=== PATIENT | female | born 1970 | race Caucasian/White ===

== ENCOUNTER 2016-06-05 17:33 | Emergency (ER) | payer BC ==
[2016-06-05 18:07] LABS: URINE APPEARANCE CLEAR; URINE BILIRUBIN NEGATIVE (NEGATIVE); URINE BLOOD NEGATIVE (NEGATIVE); URINE COLOR YELLOW; URINE GLUCOSE (UA) NEGATIVE (NEGATIVE); URINE KETONE NEGATIVE (NEGATIVE); URINE LEUKOCYTE ESTERASE TRACE (NEGATIVE); URINE NITRITE NEGATIVE (NEGATIVE); URINE PROTEIN NEGATIVE (NEGATIVE); URINE UROBILINOGEN 0.2 E.U./dL (0.20 - 1.00)
--- NOTE | 2016-06-05 18:10 | Emergency Department Record ---
History of Present Illness - General Chief complaint: Flank Pain Stated complaint: FLANK PAIN/RT SIDE Time Seen by Provider: 06/05/16 18:00 Source: Patient Mode of Arrival: Ambulatory - History of Present Illness Initial comments: patient is complaining of right flank pain and stopped bactrim 2 days ago and urologist stopped it because on antibiotics to long pe Dr. Reddy and CT scan for jun 13 and than a cysto is going to be scheduled. Primary is Dr. Knox and he is on vacation and he put her on bactrim for a month. 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 patient 's back pain is reproducible with palpation and rotation of her back. Onset/Timin -: Month(s) Radiation: Non-radiating Severity: Severe Severity scale (1-10): 6 Quality: Aching Consistency: Constant Improves with: None Worsens with: None Patient : No Associated Symptoms: Loss of appetite - Related Data Home Medications Medication Instructions Recorded Confirmed Last Taken Atenolol [Atenolol] 100 mg PO DAILY 12/13/13 06/05/16 06/05/16 Hydrochlorothiazide 50 mg PO DAILY 12/13/13 06/05/16 06/05/16 [Hydrochlorothiazide] Ibuprofen [Motrin] 400 mg PO DAILY 12/13/13 06/05/16 06/05/16 Levothyroxine Sodium [Synthroid] 25 mcg PO DAILYTHY 12/13/13 06/05/16 06/05/16 Allergies Allergy/AdvReac Type Severity Reaction Status Date / Time diazepam [DIAZEPAM] Allergy Unknown ALTERED Verified 06/05/16 18:00 MENTAL STATUS hydrocodone [HYDROCODONE] Allergy Unknown VOMITING Verified 06/05/16 18:00 meperidine [MEPERIDINE] Allergy Unknown HIVES Verified 06/05/16 18:00 morphine [MORPHINE] Allergy Unknown ANAPHYLAXIS Verified 06/05/16 18:00 Penicillins [PENICILLINS] Allergy Unknown HIVES Verified 06/05/16 18:00 hydromorphone HCl Allergy DIFFICULTY Verified 06/05/16 18:00 [From Dilaudid] BREATHING Travel Screening - Travel/Exposure Within Last 30 Days Have you traveled within the last 30 days?: No Review of Systems Reviewed: No additional complaints except as noted below Constitutional: Reports: As per HPI. Denies: Chills, Fever, Malaise, Night sweats, Weakness, Weight change Eyes: Reports: As per HPI. Denies: Eye discharge, Eye pain, Photophobia, Vision change ENT: Reports: As per HPI. Denies: Congestion, Dental pain, Ear pain, Epistaxis , Hearing loss, Throat pain Respiratory: Reports: As per HPI. Denies: Cough, Dyspnea, Hemoptysis, Stridor, Wheezes Cardiovascular: Reports: As per HPI. Denies: Arrhythmia, Chest pain, Dyspnea on exertion, Edema, Murmurs, Orthopnea, Palpitations, Paroxysmal nocturnal dyspnea, Rheumatic Fever, Syncope Endocrine: Reports: As per HPI. Denies: Fatigue, Heat or cold intolerance, Polydipsia, Polyuria Gastrointestinal: Reports: As per HPI. Denies: Abdominal pain, Constipation, Diarrhea, Hematemesis, Hematochezia, Melena, Nausea, Vomiting Genitourinary: Reports: As per HPI. Denies: Abnormal menses, Discharge, Dyspareunia, Dysuria, Frequency, Hematuria, Incontinence, Retention, Urgency Musculoskeletal: Reports: As per HPI. Denies: Arthralgia, Back pain, Gout, Joint swelling, Myalgia, Neck pain Skin: Reports: As per HPI. Denies: Bruising, Change in color, Change in hair/ nails, Lesions, Pruritus, Rash Neurological: Reports: As per HPI. Denies: Abnormal gait, Confusion, Headache, Numbness, Paresthesias, Seizure, Tingling, Tremors, Vertigo, Weakness Psychiatric: Reports: As per HPI. Denies: Anxiety, Auditory hallucinations, Depression, Homicidal thoughts, Suicidal thoughts, Visual hallucinations Hematological/Lymphatic: Reports: As per HPI. Denies: Anemia, Blood Clots, Easy bleeding, Easy bruising, Swollen glands Past Medical History - SOCIAL HISTORY Smoking Status: Never smoker Alcohol Use: None Drug Use: None - RESPIRATORY Hx Respiratory Disorders: No - CARDIOVASCULAR Hx Cardio Disorders: Yes Comment:: Mitral valve prolapse - NEURO Hx Neuro Disorders: No - GI Hx GI Disorders: No - Hx Genitourinary Disorders: No - ENDOCRINE Hx Endocrine Disorders: Yes Hx Thyroid Disease: Yes - MUSCULOSKELETAL Hx Musculoskeletal Disorders: Yes Hx Arthritis: Yes Hx Back Injury: Yes - PSYCH Hx Psych Problems: No - HEMATOLOGY/ONCOLOGY Hx Hematology/Oncology Disorders: No Family Medical History Any Significant Family History?: Yes Hx Heart Disease: Brother/Sister Hx HTN: Father, Mother *Stroke Comment: Multiple family members have of anurysms. Physical Exam - General General Appearance: Alert, Oriented x3, Cooperative, No acute distress - Head Head exam: Normal inspection - Eye Eye exam: Normal appearance, PERRL Pupils: Normal accommodation - ENT ENT exam: Normal exam, Mucous membranes moist, Normal external ear exam, Normal orophraynx, TM's normal bilaterally Ear exam: Normal external inspection. negative: External canal tenderness Nasal Exam: Normal inspection. negative: Discharge, Sinus tenderness Mouth exam: Normal external inspection, Tongue normal Teeth exam: Normal inspection. negative: Dental caries Throat exam: Normal inspection. negative: Tonsillar erythema, Tonsillar exudate - Neck Neck exam: Normal inspection, Full ROM. negative: Tenderness - Respiratory Respiratory exam: Normal lung sounds bilaterally. negative: Respiratory distress - Cardiovascular Cardiovascular Exam: Regular rate, Normal rhythm, Normal heart sounds - GI/Abdominal GI/Abdominal exam: Soft, Normal bowel sounds. negative: Tenderness - Rectal Rectal exam: Deferred - exam: Deferred - Extremities Extremities exam: Normal inspection, Full ROM, Normal capillary refill. negative: Tenderness - Back Back exam: Reports: Normal inspection, Full ROM. Denies: Muscle spasm, Rash noted, Tenderness - Neurological Neurological exam: Alert, Normal gait, Oriented X3, Reflexes normal - Psychiatric Psychiatric exam: Normal affect, Normal mood - Skin Skin exam: Dry, Intact, Normal color, Warm Course Vital Signs 06/05/16 17:52 Temperature 98.0 F Pulse Rate 77 Respiratory 18 Rate Blood Pressure 137/64 Pulse Ox 96 patient was also on pyridium. - Reevaluation(s) Reevaluation #1: discussed UA results and not clean catch and talked about using motrin for her back pain and she is insistint on going on an antibiotic and she said she has 11 days of bactrim left so we decided to restart the bactrim DS BID and see Dr. Knxo on friday and return if worse. 06/05/16 18:51 Disposition Clinical Impression: History of UTI Back pain Qualifiers: Back pain location: low back pain Chronicity: acute Back pain laterality: right Sciatica presence: without sciatica Qualified Code(s): M54.5 - Low back pain UTI (urinary tract infection) Qualifiers: Urinary tract infection type: acute cystitis Hematuria presence: with hematuria Qualified Code(s): N30.01 - Acute cystitis with hematuria Disposition: Home, Self-Care Condition: (1) Good Instructions: Urinary Tract Infection in Women (ED), Low Back Strain (ED) Additional Instructions: follow up with Dr. knox on friday return if worse Forms: Patient Portal Access Time of Disposition: 18:55
[2016-06-05 18:15] LABS: URINE BACTERIA 1+; URINE RBC 0 - 2 (NONE SEEN)
== END 2016-06-05 19:06 | disposition home or self-care (01) ==
LOC: ER 17:33
DX: N30.01 Acute cystitis with hematuria (principal); M54.5 Low back pain
CPT/HCPCS: 81001; 87086; 99282

== ENCOUNTER 2017-04-17 00:14 | Emergency (ER) | payer BC ==
[2017-04-17 01:22] LABS: BASO % 0.8 % (0-6); EOS % 4.8 % (0-6); GRAN % 56.9 % (47-80); HEMATOCRIT 43.5 % (35.0-47.0); LYMPH % 26.4 % (16-45); MEAN CELL VOLUME 93.8 fl (81-97); MEAN CORPUSCULAR HEMOGLOBIN 30.2 pg (27-33); MEAN CORPUSCULAR HGB CONC 32.2 g/dl (32-36); MEAN PLATELET VOLUME 10.4 fl (7.4-10.4); MONO % 11.1 % (0-9); PLATELET COUNT 353 K/uL (130-400); RED BLOOD COUNT 4.64 M/uL (3.80-5.40); RED CELL DISTRIBUTION WIDTH 13.3 % (11.5-14.5); WHITE BLOOD COUNT W/O DIFF 10.6 K/uL (4.2-12.2)
[2017-04-17 01:25] LABS: STREP A SCREEN NEGATIVE (NEGATIVE)
[2017-04-17 01:29] LABS: INFLUENZA A NEGATIVE (NEGATIVE)
[2017-04-17 01:30] LABS: INFLUENZA B NEGATIVE (NEGATIVE)
[2017-04-17] MEDS ORDERED: DIPHENHYDRAMINE HCL 25 MG CAPSULE PO ONE (01:43)
[2017-04-17] MEDS ORDERED: ACETAMINOPHEN 500 MG TABLET PO ONE (01:43)
--- NOTE | 2017-04-17 01:44 | Emergency Department Record ---
History of Present Illness - General Chief complaint: ENT Stated complaint: BURNING SCRATCHY THROAT Time Seen by Provider: 04/17/17 00:37 Source: Patient Mode of Arrival: Ambulatory Limitations: No limitations - History of Present Illness Initial comments: pt has had a cough and sore throat for 3 days w a hoarse voice complaint: Sore throat Onset/Timin -: Days(s) Severity: Mild Severity scale (1-10): 8 Consistency: Constant, Getting worse Improves with: None Worsens with: None Associated Symptoms: Cough, Sore throat - Related Data Allergies Allergy/AdvReac Type Severity Reaction Status Date / Time diazepam [DIAZEPAM] Allergy Unknown ALTERED Verified 06/05/16 18:00 MENTAL STATUS hydrocodone [HYDROCODONE] Allergy Unknown VOMITING Verified 06/05/16 18:00 meperidine [MEPERIDINE] Allergy Unknown HIVES Verified 06/05/16 18:00 morphine [MORPHINE] Allergy Unknown ANAPHYLAXIS Verified 06/05/16 18:00 Penicillins [PENICILLINS] Allergy Unknown HIVES Verified 06/05/16 18:00 hydromorphone HCl Allergy DIFFICULTY Verified 06/05/16 18:00 [From Dilaudid] BREATHING Travel Screening - Travel/Exposure Within Last 30 Days Have you traveled within the last 30 days?: No - Travel/Exposure Within Last Year Have you traveled outside the [place] in the last year?: No - Additonal Travel Details Have you been exposed to anyone with a communicable illness?: No - Travel Symptoms Symptom Screening: None Review of Systems Reviewed: No additional complaints except as noted below Constitutional: Reports: As per HPI. Denies: Chills, Fever, Malaise, Night sweats, Weakness, Weight change Eyes: Reports: As per HPI. Denies: Eye discharge, Eye pain, Photophobia, Vision change ENT: Reports: As per HPI. Denies: Congestion, Dental pain, Ear pain, Epistaxis , Hearing loss, Throat pain Respiratory: Reports: As per HPI. Denies: Cough, Dyspnea, Hemoptysis, Stridor, Wheezes Cardiovascular: Reports: As per HPI. Denies: Arrhythmia, Chest pain, Dyspnea on exertion, Edema, Murmurs, Orthopnea, Palpitations, Paroxysmal nocturnal dyspnea, Rheumatic Fever, Syncope Endocrine: Reports: As per HPI. Denies: Fatigue, Heat or cold intolerance, Polydipsia, Polyuria Gastrointestinal: Reports: As per HPI. Denies: Abdominal pain, Constipation, Diarrhea, Hematemesis, Hematochezia, Melena, Nausea, Vomiting Genitourinary: Reports: As per HPI. Denies: Abnormal menses, Discharge, Dyspareunia, Dysuria, Frequency, Hematuria, Incontinence, Retention, Urgency Musculoskeletal: Reports: As per HPI. Denies: Arthralgia, Back pain, Gout, Joint swelling, Myalgia, Neck pain Skin: Reports: As per HPI. Denies: Bruising, Change in color, Change in hair/ nails, Lesions, Pruritus, Rash Neurological: Reports: As per HPI. Denies: Abnormal gait, Confusion, Headache, Numbness, Paresthesias, Seizure, Tingling, Tremors, Vertigo, Weakness Psychiatric: Reports: As per HPI. Denies: Anxiety, Auditory hallucinations, Depression, Homicidal thoughts, Suicidal thoughts, Visual hallucinations Hematological/Lymphatic: Reports: As per HPI. Denies: Anemia, Blood Clots, Easy bleeding, Easy bruising, Swollen glands Past Medical History - SOCIAL HISTORY Smoking Status: Never smoker Alcohol Use: None Drug Use: None - RESPIRATORY Hx Respiratory Disorders: No - CARDIOVASCULAR Hx Cardio Disorders: Yes Hx Hypertension: Yes Comment:: Mitral valve prolapse; takes water pill - NEURO Hx Neuro Disorders: No - GI Hx GI Disorders: No - Hx Genitourinary Disorders: No - ENDOCRINE Hx Endocrine Disorders: Yes Hx Thyroid Disease: Yes (hypo) - MUSCULOSKELETAL Hx Musculoskeletal Disorders: Yes Hx Arthritis: Yes Hx Back Injury: Yes - PSYCH Hx Psych Problems: No - HEMATOLOGY/ONCOLOGY Hx Hematology/Oncology Disorders: No Family Medical History Any Significant Family History?: No Hx Heart Disease: Brother/Sister Hx HTN: Father, Mother *Stroke Comment: Multiple family members have of anurysms. Physical Exam - General General Appearance: Alert, Oriented x3, Cooperative, Mild distress - Head Head exam: Normal inspection - Eye Eye exam: Normal appearance, PERRL, EOMI Pupils: Normal accommodation - ENT ENT exam: Normal exam, Mucous membranes moist, Normal external ear exam, Normal orophraynx Ear exam: Normal external inspection. negative: External canal tenderness Nasal Exam: Normal inspection. negative: Discharge, Sinus tenderness Mouth exam: Normal external inspection, Tongue normal Teeth exam: Normal inspection. negative: Dental caries Throat exam: Tonsillar erythema. negative: Tonsillar exudate - Neck Neck exam: Normal inspection, Full ROM. negative: Tenderness - Respiratory Respiratory exam: Normal lung sounds bilaterally. negative: Respiratory distress - Cardiovascular Cardiovascular Exam: Regular rate, Normal rhythm, Normal heart sounds - GI/Abdominal GI/Abdominal exam: Soft, Normal bowel sounds. negative: Tenderness - Rectal Rectal exam: Deferred - exam: Deferred - Extremities Extremities exam: Normal inspection, Full ROM, Normal capillary refill. negative: Tenderness - Back Back exam: Reports: Normal inspection, Full ROM. Denies: Muscle spasm, Rash noted, Tenderness - Neurological Neurological exam: Alert, CN II-XII intact, Normal gait, Oriented X3 - Psychiatric Psychiatric exam: Normal affect, Normal mood - Skin Skin exam: Dry, Intact, Normal color, Warm Course Vital Signs 04/17/17 04/17/17 00:17 00:25 Temperature 98.4 F Pulse Rate [ 75 Pulse Ox Probe] Respiratory 18 Rate Blood Pressure 114/61 [Left Arm] Pulse Ox 96 Medical Decision Making - Lab Data Result diagrams: 04/17/17 01:15 Lab Results 04/17/17 04/17/17 Range/Units 01:15 01:15 WBC 10.6 (4.2-12.2) K/uL RBC 4.64 (3.80-5.40) M/uL Hgb 14.0 (11.6-16.0) gm/dl Hct 43.5 (35.0-47.0) % MCV 93.8 (81-97) fl MCH 30.2 (27-33) pg MCHC 32.2 (32-36) g/dl RDW 13.3 (11.5-14.5) % Plt Count 353 (130-400) K/uL MPV 10.4 (7.4-10.4) fl Gran % 56.9 (47-80) % Lymphocytes % 26.4 (16-45) % Monocytes % 11.1 H (0-9) % Eosinophils % 4.8 (0-6) % Basophils % 0.8 (0-6) % Influenza Type A Ag Negative (NEGATIVE) Influenza Type B Ag Negative (NEGATIVE) Group A Strep Screen Negative (NEGATIVE) Disposition Disposition: Discharge Clinical Impression: URI (upper respiratory infection) Qualifiers: URI type: unspecified viral URI Qualified Code(s): J06.9 - Acute upper respiratory infection, unspecified; B97.89 - Other viral agents as the cause of diseases classified elsewhere; B97.89 - Other viral agents as the cause of diseases classified elsewhere Disposition: Home, Self-Care Condition: (1) Good Instructions: Upper Respiratory Infection (ED) Additional Instructions: follow up with family doctor. return sooner if worse. tylenol every 4 hours as needed Quality - Quality Measures Quality Measures: N/A - Blood Pressure Screening Does Patient Have Any of the Following: No Blood Pressure Classification: Normal BP Reading Systolic Measurement: 114 Diastolic Measurement: 61 Screening for High Blood Pressure: < Normal BP, F/U Not Required > [G8783]
--- NOTE | 2017-04-17 15:10 | RADIOLOGY REPORT ---
EXAM: CHEST, TWO VIEW HISTORY: SORE THROAT AND A COUGH FOR ONE WEEK. SHORTNESS OF BREATH. PAIN IN UPPER CHEST BILATERALLY. TECHNIQUE: Upright PA and lateral views of the chest were obtained. Comparison: Two view chest radiographic examination dated 03/18/12. FINDINGS: The cardiomediastinal silhouette is normal in size and configuration. The pulmonary vasculature is nondilated. The lungs and pleural spaces are clear. The osseous structures are intact. Mild levoconvex curvature of the upper thoracic spine. IMPRESSION: NO RADIOGRAPHIC EVIDENCE OF ACUTE CARDIOPULMONARY DISEASE. JOB NUMBER: [id number] [facility]
== END 2017-04-17 01:52 | disposition home or self-care (01) ==
LOC: ER 00:14
DX: J06.9 Acute upper respiratory infection, unspecified (principal); R05 Cough; J02.9 Acute pharyngitis, unspecified; B97.89 Other viral agents as the cause of diseases classified elsewhere
CPT/HCPCS: 71020; 85025; 87400; 87880; 99283; 99284

== ENCOUNTER 2019-05-23 21:15 | Emergency (ER) | payer BC ==
[2019-05-23] MEDS ORDERED: ACETAMINOPHEN 1,000 MG/100 ML BTL IVPB ONE (21:38)
--- NOTE | 2019-05-23 21:52 | Emergency Department Record ---
History of Present Illness - General Chief complaint: Pain Stated complaint: LEFT KNEE PAIN Time Seen by Provider: 05/23/19 21:30 Source: Patient, Family Mode of Arrival: Wheelchair Limitations: No limitations - History of Present Illness Initial comments: The patient is here due to L knee pain for 2 weeks. She denies any injury but states the knee pain has progressively worsened. There has been no trauma, fall, fever, chills, or redness. The patient has no hx of similar issues. MD Complaint: Extremity pain, Joint pain Onset/Timin -: Week(s) Location: Left, Knee History of Same: Yes Radiation: None Severity scale (1-10): 10 Quality: Aching Consistency: Constant Improves with: Rest Worsens with: Exertion, Palpation, Walking, Weight bearing, Other Associated Symptoms: Arthralgias - Related Data Previous Rx's Medication Instructions Recorded Prednisone [Prednisone 20Mg] 40 mg PO DAILY #8 tab 05/23/19 Allergies Allergy/AdvReac Type Severity Reaction Status Date / Time diazepam [DIAZEPAM] Allergy Unknown ALTERED Verified 06/05/16 18:00 MENTAL STATUS hydrocodone [HYDROCODONE] Allergy Unknown VOMITING Verified 06/05/16 18:00 meperidine [MEPERIDINE] Allergy Unknown HIVES Verified 06/05/16 18:00 morphine [MORPHINE] Allergy Unknown ANAPHYLAXIS Verified 06/05/16 18:00 Penicillins [PENICILLINS] Allergy Unknown HIVES Verified 06/05/16 18:00 hydromorphone HCl Allergy DIFFICULTY Verified 06/05/16 18:00 [From Dilaudid] BREATHING Travel Screening - Travel/Exposure Within Last 30 Days Have you traveled within the last 30 days?: No - Travel Symptoms Symptom Screening: None Review of Systems Constitutional: Denies: Chills, Fever Eyes: Denies: Eye discharge ENT: Denies: Congestion Respiratory: Denies: Cough, Dyspnea Past Medical History - SOCIAL HISTORY Smoking Status: Never smoker Alcohol Use: None Drug Use: None - RESPIRATORY Hx Respiratory Disorders: No - CARDIOVASCULAR Hx Cardio Disorders: Yes Hx Hypertension: Yes Comment:: Mitral valve prolapse; takes water pill - NEURO Hx Neuro Disorders: No - GI Hx GI Disorders: No - Hx Genitourinary Disorders: No - ENDOCRINE Hx Endocrine Disorders: Yes Hx Thyroid Disease: Yes (hypo) - MUSCULOSKELETAL Hx Musculoskeletal Disorders: Yes Hx Arthritis: Yes Hx Back Injury: Yes - PSYCH Hx Psych Problems: No - HEMATOLOGY/ONCOLOGY Hx Hematology/Oncology Disorders: No Family Medical History Any Significant Family History?: Yes Hx Heart Disease: Brother/Sister Hx HTN: Father, Mother *Stroke Comment: Multiple family members have of anurysms. Physical Exam - General General Appearance: Alert, Oriented x3, Cooperative, No acute distress - Head Head exam: Atraumatic, Normocephalic - Eye Eye exam: Normal appearance, PERRL - GI/Abdominal GI/Abdominal exam: Soft, Normal bowel sounds. negative: Tenderness - Extremities Extremities exam: Joint swelling, Normal capillary refill, Tenderness, Other (The L leg and foot are NVI with normal pulses.). negative: Normal inspection (There is a mild joint effusion but no erythema present or warmth.), Calf tenderness, Full ROM (There is significantly decreased ROM due to pain. ), Pedal edema - Neurological Neurological exam: Abnormal gait, Alert, Oriented X3. negative: Motor sensory deficit, Normal gait - Psychiatric Psychiatric exam: negative: Anxious - Skin Skin exam: negative: Rash Course Vital Signs 05/23/19 21:26 Temperature 97.9 F Pulse Rate [ 76 Pulse Ox Probe] Respiratory 18 Rate Pulse Ox 98 - Reevaluation(s) Reevaluation #1: The patient is doing better after the [employer]. I did discuss the issues with the severe arthritis with the L knee and do believe that is the cause of her problems. We will place the patient on a short course of oral steroids and will refer the patient to Dr. Palafox hopefully for an appointment this next 05/23/19 22:39 Medical Decision Making - Data Complexity MDM Data: Labs Ordered and/or Reviewed, X-Ray Ordered and/or Reviewed - Lab Data Result diagrams: 05/23/19 21:55 05/23/19 21:55 - Radiology Data Radiology results: Report reviewed (L Knee: Severe Tricompartmental arthritis. O/W neg.) Disposition Disposition: Discharge Clinical Impression: Knee pain, left Qualifiers: Chronicity: acute Qualified Code(s): M25.562 - Pain in left knee Disposition: Home, Self-Care Condition: (2) Stable Instructions: Arthralgia (ED) Additional Instructions: Please wear the [place] wrap during the day and use Ice and elevation on the L knee. Continue the Prednisone tomorrow and please see Dr. Palafox in the Specialty clinic this next Wed in 3 days. Return to the ER for any worsening issues, pain, or any fever. Prescriptions: Prednisone [Prednisone 20Mg] 40 mg PO DAILY #8 tab Referrals: [facility] Special[facility] Clinics [Provider Group] Forms: Patient Portal Access Time of Disposition: 22:42 Quality - Quality Measures Quality Measures: N/A - Blood Pressure Screening View Details: Yes Does Patient Have Any of the Following: Active Dx of HTN Systolic Measurement: ~ Screening for High Blood Pressure: Patient Exclusion, Hx of HTN [G9744]
--- NOTE | 2019-05-23 22:01 | RADIOLOGY REPORT ---
EXAMINATION: Left Knee, Three Views EXAM DATE: 05/23/2019 9:52 PM TECHNIQUE: Frontal, lateral, and oblique INDICATION: L knee pain COMPARISON: None ENCOUNTER: Initial FINDINGS: Severe tricompartmental degenerative change. There is joint space narrowing with hypertrophic spurrin g. No evidence of fracture dislocation. No joint effusion IMPRESSION: Severe tricompartmental degenerative change with joint space narrowing and hypertrophic spurring. Dictated by: Mary Parson DO on 05/23/2019 9:59 PM. .
[2019-05-23 22:09] LABS: ABSOLUTE NEUTROPHIL COUNT 5.65; BASO % 0.5 % (0-6); EOS % 4.8 % (0-6); GRAN % 56.9 % (47-80); HEMATOCRIT 44.8 % (35.0-47.0); HEMOGLOBIN 14.1 gm/dl (11.6-16.0); LYMPH % 28.2 % (16-45); MEAN CELL VOLUME 95.3 fl (81-97); MEAN CORPUSCULAR HGB CONC 31.5 g/dl (32-36); MEAN PLATELET VOLUME 10.2 fl (7.4-10.4); MONO % 9.6 % (0-9); PLATELET COUNT 368 K/uL (130-400); RED CELL DISTRIBUTION WIDTH 13.4 % (11.5-14.5); WHITE BLOOD COUNT W/O DIFF 9.9 K/uL (4.2-12.2)
[2019-05-23 22:22] LABS: BLOOD UREA NITROGEN 16 mg/dL (6-20); CREATININE 0.7 mg/dL (0.5-0.9); EST GLOMERULAR FILTRATION RATE > 60 mL/min
[2019-05-23 22:25] LABS: GLUCOSE,RANDOM 119 mg/dL (74-109)
[2019-05-23 22:28] LABS: C-REACTIVE PROTEIN 0.65 mg/dL (<0.5)
[2019-05-23] MEDS ORDERED: METHYLPREDNISOLONE PF 125MG/VIAL IVP ONE (22:38)
== END 2019-05-23 22:57 | disposition home or self-care (01) ==
LOC: ER 21:15
DX: M17.12 Unilateral primary osteoarthritis, left knee (principal); M25.662 Stiffness of left knee, not elsewhere classified; M25.562 Pain in left knee; I10 Essential (primary) hypertension
CPT/HCPCS: 80048; 84550; 85025; 86140; 96365; 96375; 99284; J2930